=== PATIENT | male | born 1950 ===

== ENCOUNTER 2016-12-30 16:37 | Emergency (ER) | payer MEDICARE, OTHER ==
[2016-12-30 16:46] VITALS: BP 133/74; RESP 16; TEMP 98.8; O2SAT 97
[2016-12-30] MEDS ORDERED: Sodium Chloride 0.9% 500 ML IV STA (17:00)
--- NOTE | 2016-12-30 17:11 | ED PDOC ---
HPI: Chest Pain Time Seen by Provider: 12/30/16 16:51 Chief Complaint (Nursing): Chest Pain Chief Complaint (Provider): Fever, Cough, Abnormal Bloodwork History Per: Patient History/Exam Limitations: no limitations Current Symptoms Are (Timing): Still Present Additional Complaint(s): Ludwig Moses, a 66 year old male, with a past medical history of lymphoma and anemia is sent to the ED by his PMD for abnormal bloodwork. In addition, the patient states that he has also been having a cough productive of green and white phlegm and fever. The patient states that he does feel some chest pain but only when he coughs. Denies nausea and vomiting. Patient states he is currently on medication for anemia. No numbness, tingles, weakness, vision changes, headaches, dizziness. No abd pain. Of note: Patient states his last chemotherapy session was 1 year ago and he is unsure as to whether or not he still has the disease. PMD: Dr. Thomas Oncologist: Dr. Jonna Batista Past Medical History Reviewed: Historical Data, Nursing Documentation, Vital Signs Vital Signs: Last Vital Signs Temp 98.8 F 12/30/16 16:43 Pulse 89 12/30/16 17:47 Resp 16 12/30/16 16:43 BP 133/74 12/30/16 16:43 Pulse Ox 97 12/30/16 17:25 - Medical History PMH: Anemia (AUTOIMMUNE HEMOLYTIC ANEMIA), Anxiety, Depression, HTN, Malignancy (lymphoma (last chemotherapy session 1 year ago)), Pneumonia - Family History Family History: States: Unknown Family Hx - Social History Current smoker - smoking cessation education provided: No Alcohol: None Drugs: Denies - Home Medications Home Medications: Ambulatory Orders Medication Instructions Recorded Folic Acid 1 mg PO DAILY #0 tab 05/16/14 Acyclovir 400 mg PO BID 04/01/15 Gabapentin [Neurontin] 600 mg PO TID 04/01/15 Omeprazole 20 mg PO DAILY 04/01/15 Prednisone 60 mg PO DAILY 04/01/15 Quetiapine Fumarate [Seroquel Xr] 50 mg PO HS 04/01/15 Sulfamethoxazole/Trimethopri 1 tab PO MWF 04/01/15 [Septra Ds 800 mg-160 mg] Ferrous Sulfate 325 mg PO DAILY 04/04/15 Fluoxetine Hydrochloride [Prozac] 20 mg PO DAILY 04/04/15 Cefepime IV 2 gm in NS [Maxipime 2 gm IV Q8 #0 bag 04/08/15 2gm] Dicyclomine [Bentyl] 20 mg PO Q12 PRN #20 tab 02/19/16 Famotidine [Pepcid] 20 mg PO Q12 #14 tab 02/19/16 Azithromycin [Zithromax] 250 mg PO DAILY 5 Days 12/30/16 Ibuprofen [Motrin] 600 mg PO TID 7 Days 12/30/16 - Allergies Allergies/Adverse Reactions: Allergies Allergy/AdvReac Type Severity Reaction Status Date / Time No Known Allergies Allergy Verified 12/30/16 16:42 Review of Systems ROS Statement: Except As Marked, All Systems Reviewed And Found Negative Constitutional: Positive for: Other (abnormal bloodwork). Negative for: Fever Cardiovascular: Positive for: Chest Pain (on cough) Respiratory: Positive for: Cough, Sputum Gastrointestinal: Negative for: Nausea, Vomiting Physical Exam - Reviewed Nursing Documentation Reviewed: Yes - Physical Exam Appears: Positive for: Non-toxic, No Acute Distress Head Exam: Positive for: ATRAUMATIC, NORMAL INSPECTION, NORMOCEPHALIC Skin: Positive for: Normal Color, Warm, Dry Eye Exam: Positive for: Normal appearance, EOMI, PERRL ENT: Positive for: Normal ENT Inspection Neck: Positive for: Normal, Painless ROM, Supple Cardiovascular/Chest: Negative for: Tachycardia Respiratory: Positive for: Normal Breath Sounds. Negative for: Rhonchi, Stridor , Wheezing, Respiratory Distress Gastrointestinal/Abdominal: Positive for: Normal Exam, Bowel Sounds, Soft. Negative for: Tenderness, Guarding, Rebound Back: Positive for: Normal Inspection. Negative for: L CVA Tenderness, R CVA Tenderness Extremity: Positive for: Normal ROM. Negative for: Tenderness, Pedal Edema, Calf Tenderness, Deformity, Swelling Neurologic/Psych: Positive for: Alert, Oriented, Gait - Laboratory Results Result Diagrams: 12/30/16 17:50 12/30/16 17:50 Interpretation Of Abn Labs: no acute - ECG ECG: Positive for: Interpreted By Me, Viewed By Me ECG Rhythm: Positive for: Normal QRS, Normal ST Segment, Sinus Rhythm O2 Sat by Pulse Oximetry: 97 (RA) Pulse Ox Interpretation: Normal - Radiology X-Ray: Read By Radiologist X-Ray Interpretation: No Acute Disease - Progress ED Course And Treament: 1903: Stable. AAOx3. Pain free. Tolerated PO. Will rx zpak for uri considering hx. Pt. has no chest pain or dyspnea. Medical Decision Making Medical Decision Makin Initial Impression: 66 year old male presenting with abnormal bloodwork, fever and cough Initial Plan: * VBG * EKG * B-type * Natriuretic * Comp Metabolic Panel * Troponin * CBC * CXR * NS 500ml IV 100mls/hr * Toradol 30mg IV * Blood Culture * Influenza A B * Reevaluation -- Scribe Attestation Documented by Emely Loving acting as a scribe for Alex Goins MD. Provider Attestation All medical record entries made by the Scribe were at my direction and personally dictated by me. I have reviewed the chart and agree that the record accurately reflects my personal performance of the history, physical exam, medical decision making, and the department course for this patient. I have also personally directed, reviewed, and agree with the discharge instructions and disposition. Disposition - Clinical Impression Clinical Impression: URI (upper respiratory infection) - Patient ED Disposition Is Patient to be Admitted: No Counseled Patient/Family Regarding: Studies Performed, Diagnosis, Need For Followup, Rx Given - Disposition Referrals: [facility] [Outside] - 12/31/16 Disposition: Routine/Home Disposition Time: 19:04 Condition: STABLE Additional Instructions: Return if not better in 3 days. Prescriptions: Azithromycin [Zithromax] 250 mg PO DAILY 5 Days Ibuprofen [Motrin] 600 mg PO TID 7 Days Instructions: Upper Respiratory Infection (ED) Forms: [employer] (Qatari) Print Language: THAI
--- NOTE | 2016-12-30 17:17 | RAD ---
HISTORY: Cough COMPARISON: 02/19/2016. TECHNIQUE: Chest PA and lateral FINDINGS: LUNGS: Hyperinflation, manifestations of COPD. No active pulmonary disease. PLEURA: No significant pleural effusion identified. No pneumothorax apparent. CARDIOVASCULAR: No radiographic findings to suggest acute or significant cardiovascular disease. OSSEOUS STRUCTURES: No significant abnormalities. VISUALIZED UPPER ABDOMEN: Normal. OTHER FINDINGS: None. IMPRESSION: No active disease. No significant interval change compared to the prior examination(s).
[2016-12-30 17:50] VITALS: PULSE 89
[2016-12-30 18:10] LABS: BASO # 0.1 K/uL (0.0-0.2); BASO % 0.9 % (0.0-2.0); EOS # 0.2 K/uL (0.0-0.7); EOS % 1.8 % (0.0-4.0); HEMOGLOBIN 10.5 g/dL (12.0-18.0); LYMPH # 1.4 K/uL (1.0-4.3); LYMPH % 12.1 % (20.0-40.0); MEAN CELL VOLUME 93.1 fl (80.0-94.0); MEAN CORPUSCULAR HEMOGLOBIN 31.7 pg (27.0-31.0); MEAN PLATELET VOLUME 7.3 fl (7.2-11.7); MONO # 0.9 K/uL (0.0-0.8); NEUT # 8.9 K/uL (1.8-7.0); NEUT % 77.2 % (50.0-75.0); NRBC % 0.1 % (0.0-0.0); RBC 3.3 Mil/uL (4.40-5.90); RED CELL DISTRIBUTION WIDTH 15.6 % (11.5-14.5); WHITE BLOOD COUNT 11.6 K/uL (4.8-10.8)
[2016-12-30 18:15] LABS: ALB/GLOB RATIO 1.6 (1.0-2.1); ALBUMIN 4.3 g/dL (3.5-5.0); ALT/SGPT 40 U/L (21-72); AST/SGOT 26 U/L (17-59); BLOOD UREA NITROGEN 20 mg/dl (9-20); CALCIUM 8.8 mg/dL (8.4-10.2); GFR AFRICAN-AMERICAN > 60; GFR NON-AFRICAN AMERICAN > 60
[2016-12-30 18:24] LABS: B-TYPE NATRIURETIC PEPTIDE 165 pg/ml (0-900)
--- NOTE | 2016-12-31 10:41 | CARD ---
APPROVED REPORT EKG Measurement Heart [id number] MD [id number] <Conclusion> Sinus rhythm with premature atrial complexes Nonspecific ST abnormality Abnormal ECG
== END 2016-12-30 19:43 | disposition home or self-care (01) ==
LOC: H.ER 16:37
DX: J06.9 Acute upper respiratory infection, unspecified (principal); D64.9 Anemia, unspecified; F32.9 Major depressive disorder, single episode, unspecified; F41.9 Anxiety disorder, unspecified; I10 Essential (primary) hypertension
CPT/HCPCS: 71020; 80053; 83880; 84484; 85025; 87040; 87804; 93005; 96360; 96361; 99283; J1885; J7040